=== PATIENT | female | born 1965 | race American Indian/Alaskan Native ===

== ENCOUNTER 2018-04-29 11:12 | Outpatient (CLI) | payer OTHER ==
--- NOTE | 2018-04-29 14:50 | Fluoroscopy Report ---
AIR CONTRAST BARIUM ENEMA: History: Colon cancer screening. The bowel is coated with barium and distended with air. The bowel contours are smooth and there is a normal haustral pattern. No inflammatory changes, fixed filling defects or evidence of neoplasm is seen. IMPRESSION: Normal study.
== END 2018-04-29 11:13 | disposition home or self-care (01) ==
LOC: FLUORO 11:12
PROVIDERS: ATTEND Internal Medicine Gastroenterology
DX: Z12.11 Encounter for screening for malignant neoplasm of colon (principal); K59.09 Other constipation; Z90.710 Acquired absence of both cervix and uterus
CPT/HCPCS: 74280